=== PATIENT | female | born 1960 | race Asian ===

== ENCOUNTER 2023-01-02 09:57 | Day surgery (SDC) | payer OTHER | END 2023-01-02 13:19 | disposition home or self-care (01) | LOC: ORSCSDS 09:57 | PROC: 0DBL8ZX Excision of Transverse Colon, Via Natural or Artificial Opening Endoscopic, Diagnostic (ICD-10-PCS; principal; 2023-01-02) | PROC: 0DBN8ZX Excision of Sigmoid Colon, Via Natural or Artificial Opening Endoscopic, Diagnostic (ICD-10-PCS; principal; 2023-01-02) | PROC: 0DBK8ZX Excision of Ascending Colon, Via Natural or Artificial Opening Endoscopic, Diagnostic (ICD-10-PCS; principal; 2023-01-02) | DX: Z12.11 Encounter for screening for malignant neoplasm of colon (principal); D12.2 Benign neoplasm of ascending colon; D12.3 Benign neoplasm of transverse colon; D12.5 Benign neoplasm of sigmoid colon; K63.5 Polyp of colon; K64.8 Other hemorrhoids; E03.9 Hypothyroidism, unspecified; E78.00 Pure hypercholesterolemia, unspecified; E78.5 Hyperlipidemia, unspecified; Z79.899 Other long term (current) drug therapy; I10 Essential (primary) hypertension ==

== ENCOUNTER 2023-04-24 23:39 | Inpatient (IN) | payer OTHER ==
[~2023-04-24] VITALS: Ht 149.9 cm; Wt 79.1 kg
[~2023-04-24 23:39] MED LIST: ATOR10; CALCIUM CITRATE PO; CIPR250 PO; DHEA PO; EUTHYROX50 MCG PO; FISH OIL PO; HYDACE5 PO; LORA10ER PO; MULVITMIND PO; PROM25S PR; SIMV10 PO; VITAMIN C/ROSE HIPS PO; VITAMIN D PO; [UNRECOGNIZED DRUG - CODE] TOP; [UNRECOGNIZED DRUG - REMARK] PO
[2023-04-25 00:28] LABS: BASOPHILS ABSOLUTE AUTO 0.01 K/mm3 (0.00-0.23); BASOPHILS PERCENT AUTO 0 % (0-2); EOSINOPHILS ABSOLUTE AUTO 0.01 K/mm3 (0.00-0.68); EOSINOPHILS PERCENT AUTO 0 % (0-6); Hematocrit 43.6 % (33.0-51.0); Hemoglobin 14.5 g/dL (11.5-16.0); IMMATURE GRAN ABSOLUTE AUTO 0.02 K/mm3 (0.00-0.10); IMMATURE GRAN PERCENT AUTO 0 % (0-1); LYMPHOCYTES ABSOLUTE AUTO 0.96 K/mm3 (0.84-5.20); LYMPHOCYTES PERCENT AUTO 12 % (21-46); MONOCYTES ABSOLUTE AUTO 0.26 K/mm3 (0.16-1.47); MONOCYTES PERCENT AUTO 3 % (4-13); Mean Corpuscular HGB 29.7 pg (26.0-34.0); Mean Corpuscular HGB Conc 33.3 g/dL (31.5-36.5); Mean Corpuscular Volume 89 fL (80-100); Mean Platelet Volume 10.4 fL (9.1-12.4); NEUTROPHILS ABSOLUTE AUTO 7.05 K/mm3 (1.96-9.15); NEUTROPHILS PERCENT AUTO 85 % (41-73); Platelet Count 299 K/mm3 (150-400); RDW Coefficient Variation 12.5 % (11.7-14.2); RDW Standard Deviation 41.1 fL (35.1-46.3); Red Blood Cell Count 4.89 M/mm3 (3.80-5.20); White Blood Cell Count 8.31 K/mm3 (4.00-11.30)
[2023-04-25 00:51] LABS: Albumin/Globulin Ratio 0.9 (0.8-1.8); Bilirubin, Total 0.4 mg/dL (0.1-1.0); Bun/Creatinine Ratio 32.6 (12.0-20.0); Calcium, Blood 9.7 mg/dL (8.5-10.1); Creatinine, Blood 0.58 mg/dL (0.40-1.00); Globulin, Blood 4.4 g/dL (2.2-4.0); Potassium, Blood 3.8 mmol/L (3.5-5.5); Total Protein, Blood 8.4 g/dL (6.4-8.2)
[2023-04-25 01:35] LABS: Influenza A, PCR NEGATIVE (NEGATIVE); Influenza B, PCR NEGATIVE (NEGATIVE); Resp Syncytial Virus, PCR NEGATIVE (NEGATIVE); SARS-Cov-2 (COVID-19) PCR, MMC NEGATIVE (NEGATIVE)
[2023-04-25 04:49] VITALS: BP 168/88
--- NOTE | 2023-04-25 05:43 | NUR ---
PATIENT IS A NEW ADMIT FROM ED. ARRIVED VIA GURNEY AND SELF TRANSFER TO BED. NG TUBE SUCTION IN PLACE. AXOX 4 AND INDEPENDENT IN ROOM, ON ROOM AIR. NPO. DENIES CHEST PAIN, SOB, AND, N/V. LR STARTED INFUSING AT 75 mL/HR. MILD HYPERTENSION ON ADMIT. DENIES ABDOMEN PAIN AT THIS TIME. SUCTION HOOKED UP TO INTERMITTENT SUCTION PER ORDERS WITH YELLOW [place] FLUID DRAINING AT THIS TIME. CALLED ANSWERING SERVICE FOR CONSULT AND NO ANSWER. WILL PASS ON TO DAY RN. ORIENTED TO ROOM AND CALL LIGHT SYSTEM. NO FAMILY PRESENT. WCTM.
[2023-04-25 06:00] LABS: BASOPHILS ABSOLUTE AUTO 0.02 K/mm3 (0.00-0.23); BASOPHILS PERCENT AUTO 0 % (0-2); EOSINOPHILS PERCENT AUTO 0 % (0-6); Hematocrit 40.7 % (33.0-51.0); Hemoglobin 13.5 g/dL (11.5-16.0); IMMATURE GRAN ABSOLUTE AUTO 0.04 K/mm3 (0.00-0.10); IMMATURE GRAN PERCENT AUTO 0 % (0-1); LYMPHOCYTES ABSOLUTE AUTO 1.24 K/mm3 (0.84-5.20); LYMPHOCYTES PERCENT AUTO 14 % (21-46); MONOCYTES ABSOLUTE AUTO 0.52 K/mm3 (0.16-1.47); MONOCYTES PERCENT AUTO 6 % (4-13); Mean Corpuscular HGB 29.8 pg (26.0-34.0); Mean Corpuscular HGB Conc 33.2 g/dL (31.5-36.5); Mean Corpuscular Volume 90 fL (80-100); Mean Platelet Volume 10.7 fL (9.1-12.4); NEUTROPHILS ABSOLUTE AUTO 7.07 K/mm3 (1.96-9.15); NEUTROPHILS PERCENT AUTO 80 % (41-73); Platelet Count 274 K/mm3 (150-400); RDW Coefficient Variation 12.7 % (11.7-14.2); RDW Standard Deviation 41.8 fL (35.1-46.3); Red Blood Cell Count 4.53 M/mm3 (3.80-5.20); White Blood Cell Count 8.89 K/mm3 (4.00-11.30)
[2023-04-25 06:18] LABS: International Normalized Ratio 1.04; Prothrombin Time Results 10.9 Sec (9.7-11.5)
[2023-04-25 06:28] LABS: Albumin, Blood 3.6 g/dL (3.4-5.0); Albumin/Globulin Ratio 0.9 (0.8-1.8); Bilirubin, Total 0.7 mg/dL (0.1-1.0); Bun/Creatinine Ratio 26.5 (12.0-20.0); Calcium, Blood 8.7 mg/dL (8.5-10.1); Creatinine, Blood 0.53 mg/dL (0.40-1.00); Globulin, Blood 3.8 g/dL (2.2-4.0); Potassium, Blood 3.7 mmol/L (3.5-5.5); Total Protein, Blood 7.4 g/dL (6.4-8.2)
[2023-04-25 07:34] VITALS: BP 168/82
[2023-04-25 16:25] VITALS: BP 179/81
--- NOTE | 2023-04-25 18:37 | NUR ---
SHIFT SUMMARY- PT ALERT AND ORIENTED 1PA D/T LINES AND TUBES. BSC FOR BATHROOM NEEDS. PT HAD DISCOMFORT IN THE ABDOMEN ABOUT MID DAY. MEDICATED WITH 1 DOSE OF IV DILAUDID. NG TUB EIN PLACE CONNECTED TO LOW INTERMITTENT SUCTION. PT HAS A SURGICAL CONSULT HOWEVER NO STAFF SAW DR COME TO SEE HER TODAY. HOWEVER THIS EVENING THE PT STATES THAT THE SURGEON DID COME TO SEE HER AND HE TOLD HER SHE DOES NOT REQUIRE SURGERY AT THIS TIME. HE DID TELL HER THE NG TUBE WAS A GOOD IDEA (PER THE REPORT FROM THE PT). PT STATES HER PAIN IS CURRENTLY 3/10. SHE IS SITTING UP IN BED, CALL LIGHT IN REACH NO S&S OF DISTRESS NOTED. CURRENTLY ON RA.
[2023-04-25 19:56] VITALS: BP 169/83
--- NOTE | 2023-04-25 20:24 | NUR ---
PT A&OX4 ADMITTED FOR SBO GI TUBE IN PLACE TO LOW INTERMITENT SUCTION DRAINING SMALL AMOUNT GREEN/WHITE.BOWEL SOUNDS FAINT IN ALL FOUR QUADS.DENIES PAIN "TENDER", LUNGS ARE CLEAR T/O, CBG Q6HR, ALL EXTREMEITIES EQUAL T/O, SKIN C/D/I. BED ELEVATED, CALL CARRASCO IN REACH, WILL CONTINUE TO MONITOR
--- NOTE | 2023-04-26 04:28 | NUR ---
SHIFT SUMMARY PATIENT HAD NO ACUTE CHANGES. AXOX 4 AND SBA TO BSC. NG TUBE IN PLACE @ [facility].I[facility]. PIV REMAINS INTACT. LR INFUSING @ 75 mL/HR. TYLENOL GIVEN X ONE FOR HEADACHE. CBG 90. DENIES CHEST PAIN, SOB, AND N/V. VSS/AFEBRILE. COOPERATIVE WITH CARE. CALL LIGHT IN REACH. BED IN LOWEST POSITION. WILL CONTINUE TO MONITOR UNTIL DAY SHIFT NURSE ASSUMES CARE.
[2023-04-26 04:48] VITALS: BP 156/84
[2023-04-26 05:15] LABS: Hematocrit 38.4 % (33.0-51.0); Hemoglobin 12.5 g/dL (11.5-16.0); Mean Corpuscular HGB 29.7 pg (26.0-34.0); Mean Corpuscular HGB Conc 32.6 g/dL (31.5-36.5); Mean Corpuscular Volume 91 fL (80-100); Mean Platelet Volume 10.6 fL (9.1-12.4); Platelet Count 239 K/mm3 (150-400); RDW Coefficient Variation 12.9 % (11.7-14.2); RDW Standard Deviation 42.6 fL (35.1-46.3); Red Blood Cell Count 4.21 M/mm3 (3.80-5.20); White Blood Cell Count 7.85 K/mm3 (4.00-11.30)
[2023-04-26 06:19] LABS: Albumin, Blood 3.1 g/dL (3.4-5.0); Anion Gap 6 mmol/L (6-16); Blood Urea Nitrogen 15 mg/dL (8-24); Bun/Creatinine Ratio 24.2 (12.0-20.0); CO2, Blood 27 mmol/L (21-32); Calcium, Blood 8.5 mg/dL (8.5-10.1); Chloride, Blood 112 mmol/L (98-108); Creatinine, Blood 0.62 mg/dL (0.40-1.00); Glomerular Filtration Rate 102 (60-); Glucose, Blood 98 mg/dL (70-99); Magnesium, Blood 2.4 mg/dL (1.6-2.4); Phosphorus, Blood 2.3 mg/dL (2.5-4.9); Potassium, Blood 3.4 mmol/L (3.5-5.5); Sodium, Blood 145 mmol/L (136-145)
[2023-04-26 07:49] VITALS: BP 152/85
[2023-04-26 14:37] VITALS: BP 143/81
--- NOTE | 2023-04-26 15:55 | NUR ---
PT NG TUBE DC'D- PT TOLLERATING CLEAR LIQUIDS WITH NO C/O PAIN OR NAUSEA. NG TUBE DC'D WITH NO DIFFICULTY OR VOMITING. PT STATES SHE FEELS SO MUCH BETTER NOW!
[2023-04-26 19:17] VITALS: BP 135/78
--- NOTE | 2023-04-26 20:06 | NUR ---
SHIFT SUMMARY- PT ALERT ORIENTED AND INDEPENDENT IN THE ROOM. NAUSEA AND PAIN WERE NOT AN ISSUE TODAY FOR HER. SHE HAD TWO STOOLS, TOLLERATING CLEAR LIQUIDS WELL AND NG TUBE DC'D PER MD ORDER. PT SITTING UP IN BED AT THE TIME OF BEDSIDE REPORT. NO S&S OF DISTRESS. SHE VERBALIZED SHE THINKS SHE IS WELL ENOUGH TO GO HOME TOMORROW. NIGHT RN AWARE.
[2023-04-27 03:28] VITALS: BP 145/76
[2023-04-27 05:00] LABS: Hematocrit 33.4 % (33.0-51.0); Hemoglobin 10.9 g/dL (11.5-16.0); Mean Corpuscular HGB 29.8 pg (26.0-34.0); Mean Corpuscular HGB Conc 32.6 g/dL (31.5-36.5); Mean Corpuscular Volume 91 fL (80-100); Mean Platelet Volume 10.5 fL (9.1-12.4); Platelet Count 214 K/mm3 (150-400); RDW Coefficient Variation 12.5 % (11.7-14.2); RDW Standard Deviation 41.9 fL (35.1-46.3); Red Blood Cell Count 3.66 M/mm3 (3.80-5.20); White Blood Cell Count 5.75 K/mm3 (4.00-11.30)
--- NOTE | 2023-04-27 05:00 | NUR ---
SHIFT SUMMARY. PATIENT A/O X4 AND INDEPENDENT IN ROOM. PATIENT TOLERATED CHEESE AND CRACKERS THIS SHIFT-REGULAR DIET IN FOR BREAKFAST. PATIENT DENIES AND PAIN OR DISCOMFORT. PATIENT IS OPTOMISTIC TO GO HOME TODAY. PATIENT IS OF PLEASANT AFFECT, CALLS APPROPRIATELY AND IS ABLE TO MAKE HER NEEDS KNOWN. BED IS LOCKED IN THE LOWEST POSITION WITH CALL LIGHT IN REACH.
[2023-04-27 05:51] LABS: Bun/Creatinine Ratio 19.3 (12.0-20.0); Calcium, Blood 8.5 mg/dL (8.5-10.1); Creatinine, Blood 0.57 mg/dL (0.40-1.00); Potassium, Blood 3.5 mmol/L (3.5-5.5)
[2023-04-27 07:33] VITALS: BP 157/86
--- NOTE | 2023-04-27 17:14 | NUR ---
DISCHARGE SUMMARY:1230 PT EDUCATED ON DISCHARGE MEDICATIONS AND INSTRUCTIONS. PT VU. PT DECLINED WHEELCHAIR TRANSPORT AND AMBULATED TO POV WITH STEADY GAIT. BELONGINGS WERE WITH PT.
== END 2023-04-27 12:15 | disposition home or self-care (01) | DRG 390 ==
LOC: ER 23:39 → MEDS 04-25 02:51 → ENPENDDIS 04-27 10:30 → MEDS 04-27 12:15
PROVIDERS: Internal Medicine; Student in an Organized Health Care Education/Training Program; ADMIT Student in an Organized Health Care Education/Training Program
DX: K56.609 Unspecified intestinal obstruction, unspecified as to partial versus complete obstruction (principal); E87.6 Hypokalemia; I10 Essential (primary) hypertension; E03.9 Hypothyroidism, unspecified; R73.9 Hyperglycemia, unspecified; Z79.890 Hormone replacement therapy; Z88.6 Allergy status to analgesic agent; Z90.710 Acquired absence of both cervix and uterus; Z11.52 Encounter for screening for COVID-19
CPT/HCPCS: 0241U; 36415; 43752; 71045; 74177; 80048; 80053; 80069; 82947; 83605; 83690; 83735; 84484; 85025; 85027; 85610; 93005; 93010; 94762; 96361-59; 96374-59; 96376-59; 99285-25; A9270; J1170; J3010; J3480; J7030; J7050; J7120; Q9967